=== PATIENT | female | born 1990 | race Caucasian/White ===

== ENCOUNTER 2017-08-28 14:22 | Emergency (ER) | payer SELFPAY ==
[2017-08-28] MEDS: METOCLOPRAMIDE INJ 10MG/2ML VIAL (J2765) IV (15:21)
[2017-08-28] MEDS: NS 1,000 ML IV ×2 (15:21→16:57)
[2017-08-28 15:34] LABS: ANION GAP 9 MEQ/L (8-16); BLOOD UREA NITROGEN 9 MG/DL (7-18); CALCIUM LEVEL 8.5 MG/DL (8.5-10.1); CARBON DIOXIDE LEVEL 21 MEQ/L (21-32); CHLORIDE LEVEL 111 MEQ/L (98-107); CONTROL LINE HCG INT CTR LINE PRESENT; CREATININE FOR GFR 0.76 MG/DL (0.55-1.30); GLOMERULAR FILTRATION RATE > 60.0 (>60); GLUCOSE, FASTING 83 MG/DL (70-100); HCG, SERUM QUALITATIVE NEGATIVE (NEGATIVE); POTASSIUM SERUM 4.1 MEQ/L (3.5-5.1); SODIUM LEVEL 141 MEQ/L (136-145)
[2017-08-28 17:21] LABS: ALBUMIN 4.2 GM/DL (3.2-5.2); ALBUMIN/GLOBULIN RATIO 1.27 (1.00-1.93); ALKALINE PHOSPHATASE 64 U/L (45-117); ALT/SGPT 13 U/L (12-78); AST/SGOT 16 U/L (7-37); BILIRUBIN,DIRECT 0.3 MG/DL (0.0-0.2); BILIRUBIN,TOTAL 1.1 MG/DL (0.2-1.0); LIPASE 142 U/L (73-393); TOTAL PROTEIN 7.5 GM/DL (6.4-8.2)
== END 2017-08-28 17:53 | disposition home or self-care (01) ==
LOC: M ED 14:22
DX: R11.2 Nausea with vomiting, unspecified (principal); R19.7 Diarrhea, unspecified; N80.9 Endometriosis, unspecified
CPT/HCPCS: J2765

== ENCOUNTER → 2018-12-17 | Outpatient (REF) | payer OTHER ==
[2018-12-17 19:23] LABS: BASO # 0.1 10^3/uL (0.0-0.2); BASO % 0.6 % (0.0-1.0); EOS # 0.4 10^3/uL (0.0-0.50); HEMATOCRIT 41.8 % (36.0-47.0); HEMOGLOBIN 13.9 g/dl (12.0-15.5); LYMPH % 34.3 % (24.0-44.0); MEAN CORPUSCULAR HEMOGLOBIN 29.8 pg (27.0-33.0); MEAN CORPUSCULAR HGB CONC 33.3 g/dl (32.0-36.5); MEAN CORPUSCULAR VOLUME 89.5 fl (80.0-96.0); MONO # 0.8 10^3/uL (0.0-0.8); MONO % 9.4 % (0.0-5.0); NEUTROPHILS # 4.5 10^3/uL (1.8-7.7); NEUTROPHILS % 50.6 % (36.0-66.0); PLATELET COUNT, AUTOMATED 242 10^3/uL (150-450); RED BLOOD COUNT 4.67 10^6/uL (4.00-5.40); WHITE BLOOD COUNT 8.8 10^3/uL (4.0-10.0)
[2018-12-17 19:40] LABS: ALT/SGPT 18 U/L (12-78); BILIRUBIN,TOTAL 0.6 MG/DL (0.2-1.0); BLOOD UREA NITROGEN 12 MG/DL (7-18); CALCIUM LEVEL 8.8 MG/DL (8.5-10.1); CARBON DIOXIDE LEVEL 29 MEQ/L (21-32); CHLORIDE LEVEL 107 MEQ/L (98-107); FREE T4 0.98 NG/DL (0.76-1.46); GLOMERULAR FILTRATION RATE > 60.0 (>60); GLUCOSE, FASTING 74 MG/DL (70-100); HCG, SERUM QUANTITATIVE 479 MIU/ML; SODIUM LEVEL 140 MEQ/L (136-145); TOTAL PROTEIN 7.4 GM/DL (6.4-8.2)
== END ==
LOC: M SFHCADAM 14:57
PROVIDERS: ATTEND Physician Assistant Medical
DX: Z32.01 Encounter for pregnancy test, result positive (principal); F34.1 Dysthymic disorder; N93.9 Abnormal uterine and vaginal bleeding, unspecified

== ENCOUNTER → 2018-12-17 | Outpatient (CLI) | payer OTHER ==
--- NOTE | 2018-12-18 06:39 | REP ---
Clinical: Positive test with vaginal bleeding. Technique: Transabdominal and transvaginal first trimester obstetrical channel with color Doppler evaluation. Findings: Homogeneous anteverted uterus measures 6.8 x 4.3 x 6.5 cm. Endometrial complex measures 5.5 mm thickness without evidence for decidual reaction. No gestational sac or is appreciated. The bilateral ovaries are normal in appearance and vascularity without torsion. Right ovary measures 1.9 x 1.7 x 1.1 cm (RI 0.65). Left ovary measures 2.1 x 1.5 x 1.2 cm (RI 0.62). No pelvic fluid or adnexal mass lesion. Impression: No decidual reaction or intrauterine identified. Correlation with serial HCG levels recommended. Electronically Signed by Naseem Osorio MD 12/18/2018 06:30 A
== END ==
LOC: M RAD 17:36
PROVIDERS: ATTEND Physician Assistant Medical
DX: N93.9 Abnormal uterine and vaginal bleeding, unspecified (principal); Z32.01 Encounter for pregnancy test, result positive

== ENCOUNTER → 2019-02-03 | Outpatient (REF) | payer OTHER | LOC: M SFHCADAM 08:47 | PROVIDERS: ATTEND Physician Assistant Medical | DX: Z87.59 Personal history of other complications of pregnancy, childbirth and the puerperium (principal) ==

== ENCOUNTER → 2019-02-28 | Outpatient (REF) | payer OTHER ==
[2019-02-28 13:23] LABS: CHLAMYDIA DNA AMPLIFICATION NEGATIVE (NEGATIVE); GC DNA AMPLIFICATION NEGATIVE (NEGATIVE)
== END ==
LOC: M SFHCWAGY 08:41
PROVIDERS: ATTEND Family Medicine
DX: Z12.4 Encounter for screening for malignant neoplasm of cervix (principal); Z11.3 Encounter for screening for infections with a predominantly sexual mode of transmission

== ENCOUNTER → 2019-07-12 | Outpatient (REF) | payer MEDICAID ==
[2019-07-12 16:08] LABS: INFLUENZA A AMPLIFICATION NEGATIVE (NEGATIVE); INFLUENZA B AMPLIFICATION NEGATIVE (NEGATIVE)
== END ==
LOC: M LAB REF 11:09
PROVIDERS: ATTEND Physician Assistant
DX: J11.1 Influenza due to unidentified influenza virus with other respiratory manifestations (principal)

== ENCOUNTER → 2020-03-25 | Outpatient (REF) | payer OTHER, MEDICAID ==
[2020-03-26 08:07] LABS: CHLAMYDIA DNA AMPLIFICATION NEGATIVE (NEGATIVE); GC DNA AMPLIFICATION NEGATIVE (NEGATIVE)
== END ==
LOC: M SFHCWAGY 17:00
PROVIDERS: ATTEND Advanced Practice Midwife
DX: Z11.3 Encounter for screening for infections with a predominantly sexual mode of transmission (principal)

== ENCOUNTER → 2020-03-31 | Outpatient (CLI) | payer OTHER, MEDICAID | LOC: M PLALAB 12:24 | PROVIDERS: ATTEND Advanced Practice Midwife | DX: Z13.79 Encounter for other screening for genetic and chromosomal anomalies (principal); Z80.3 Family history of malignant neoplasm of breast ==

== ENCOUNTER → 2020-04-27 | Outpatient (CLI) | payer OTHER ==
--- NOTE | 2020-04-27 10:31 | REP ---
INDICATION: N80.9 ENDOMETRIOSIS. COMPARISON: 09/18/2014. TECHNIQUE: Transabdominal and transvaginal scanning performed. FINDINGS: Uterine dimensions are 7.3 x 4.0 x 5.4 cm. Endometrial echo is 10 mm in AP dimension and centrally placed. There are a few 2 mm cystic structures scattered throughout the endometrium in the region of the body and lower uterine segment. The bladder measures 3.2 x 2.1 x 3.2 cm. The right ovary has dimensions of 2.0 x 2.9 x 2.3 cm. It's Doppler flow is normal with a resistive index of 0.64. The left ovary dimensions are 4.0 x 1.5 x 2.9 cm. It's Doppler flow was normal with resistive index of 0.45. A complex cystic structure left ovary most likely represents a hemorrhagic dominant follicle 1.8 x 1.5 x 0.7 cm. There is mild free fluid posteriorly. Multiple tiny cystic structures are visualized throughout the myometrium, subcentimeter in diameter. The largest is in the posterior fundus 8 x 7 x 6 mm. The findings are compatible with adenomyosis. IMPRESSION: Endometrial thickness 10 mm with a few scattered 2 mm cystic structures within the endometrial echo complex. Multiple subcentimeter cysts are seen throughout the myometrium compatible with adenomyosis. Complex cystic structure left ovary most likely represents a hemorrhagic dominant follicle, maximum diameter is 1.8 cm. Mild free fluid. <Electronically signed by Jorge Luis Brock > 04/27/20 [id number]
== END ==
LOC: M WHC 08:33
PROVIDERS: ATTEND Advanced Practice Midwife
DX: N80.9 Endometriosis, unspecified (principal); N83.202 Unspecified ovarian cyst, left side

== ENCOUNTER 2020-06-05 21:59 | Emergency (ER) | payer OTHER ==
[~2020-06-05] VITALS: Ht 165.1 cm; Wt 74.2 kg
[2020-06-05] MEDS ORDERED: IBUPROFEN 800 MG TAB PO ONE (22:45)
[2020-06-05 23:00] VITALS: BP 120/68
--- NOTE | 2020-06-06 08:26 | ECGEPIP ---
[facility] - ED Test Date: 2020-06-05 Pat Name: MALKA SPARKS Department: Room: - Gender: Female Mounter: ARVIN : 1990 Requested By: AUGUSTA BLACKWELL Order Number: [id number] Reading MD: Pascual Chin Measurements Intervals [place] Rate: 81 P: 58 CT: 139 QRS: 60 QRSD: 90 T: 16 QT: 387 QTc: 449 Interpretive Statements SINUS RHYTHM WITH SINUS ARRHYTHMIA NSTTW ABNORMALITY(S) NO PRIORS FOR COMPARISON Electronically Signed on 06-06-2020 8:26:13 EST by Pascual Chin
[2020-06-23] MEDS ORDERED: ETON1VAG3 VG (10:53)
== END 2020-06-05 23:21 | disposition home or self-care (01) ==
LOC: M ED 21:59
DX: R07.89 Other chest pain (principal); Z91.040 Latex allergy status

== ENCOUNTER → 2020-06-10 | Outpatient (REF) | payer OTHER | LOC: M SFHCADAM 07:56 | PROVIDERS: ATTEND Physician Assistant Medical | DX: F32.1 Major depressive disorder, single episode, moderate (principal) ==

== ENCOUNTER → 2020-07-02 | Outpatient (CLI) | payer OTHER ==
[~2020-07-02] MED LIST: ETON1VAG3 VG
== END ==
LOC: M LABSMTC 10:14
PROVIDERS: ATTEND Anesthesiology
DX: Z01.812 Encounter for preprocedural laboratory examination (principal); Z20.822 Contact with and (suspected) exposure to COVID-19

== ENCOUNTER 2020-07-07 06:13 | Day surgery (SDC) | payer OTHER ==
[~2020-07-07] VITALS: Ht 198.1 cm; Wt 72.6 kg
[~2020-07-07 06:13] MED LIST changes: +LIDOCAINE 1% MDV 20ML VIAL SQ PRN; +LR 1,000 ML IV ONE
[2020-07-07] MEDS ORDERED: MIDAZOLAM INJ 2MG/2ML VIAL (J2250 PER 1MG) ONE (06:14)
[2020-07-07 07:01] LABS: HEMATOCRIT 39.4 % (36.0-47.0); HEMOGLOBIN 13.1 g/dl (12.0-15.5); MEAN CORPUSCULAR HEMOGLOBIN 28.1 pg (27.0-33.0); MEAN CORPUSCULAR HGB CONC 33.2 g/dl (32.0-36.5); MEAN CORPUSCULAR VOLUME 84.5 fl (80.0-96.0); PLATELET COUNT, AUTOMATED 284 10^3/uL (150-450); RED BLOOD COUNT 4.66 10^6/uL (4.00-5.40); WHITE BLOOD COUNT 8.9 10^3/uL (4.0-10.0)
[2020-07-07] MEDS ORDERED: BUPIVACAINE HCL 0.25% 10ML VIAL As Ordered ONE (07:12)
[2020-07-07] MEDS ORDERED: METHYLENE BLUE 0.5% (5MG/ML) 10 ML AMP (PROVAYBLUE) As Ordered ONE (07:12)
[2020-07-07] MEDS ORDERED: ROCURONIUM BROMIDE 50 MG/5 ML VIAL As Ordered ONE (07:13)
[2020-07-07] MEDS ORDERED: LIDOCAINE 2% 100MG/5ML SDV (FOR ANES.) As Ordered ONE (07:13)
[2020-07-07] MEDS ORDERED: propofoL 200 MG/20 ML VIAL As Ordered ONE (07:13)
[2020-07-07] MEDS ORDERED: fentaNYL 250 MCG/5 ML INJECTION (J3010) As Ordered ONE (07:14)
[2020-07-07 07:33] LABS: HCG, SERUM QUALITATIVE NEGATIVE (NEGATIVE)
[2020-07-07] MEDS ORDERED: SCOPOLAMINE 1MG TRANSDERMAL PATCH As Ordered ONE (07:33)
[2020-07-07] MEDS ORDERED: OXYC1TAB23 PO (07:41)
[2020-07-07] MEDS ORDERED: SCOPOLAMINE 1MG TRANSDERMAL PATCH TOP ONE (07:45)
[2020-07-07] MEDS ORDERED: KETOROLAC 60MG 2ML VIAL As Ordered ONE (08:06)
[2020-07-07] MEDS ORDERED: METOCLOPRAMIDE INJ 10MG/2ML VIAL (J2765 PER 1) As Ordered ONE (08:06)
[2020-07-07] MEDS ORDERED: ONDANSETRON 4MG/2ML VIAL As Ordered ONE (08:06)
[2020-07-07] MEDS ORDERED: ACETAMINOPHEN 1000MG 100ML IV BTL (OFIRMEV) (J0131 PER 10MG) As Ordered ONE (08:06)
[2020-07-07] MEDS ORDERED: dexameTHASONE 4 MG/ML 1ML VIAL (J1100 PER 1MG) As Ordered ONE (08:06)
[2020-07-07] MEDS ORDERED: SUGAMMADEX SODIUM 500 MG/5 ML VIAL (BRIDION) As Ordered ONE (08:25)
[2020-07-07] MEDS ORDERED: fentaNYL 100 MCG/2 ML INJECTION (J3010) IV PRN (10:30)
[2020-07-07] MEDS ORDERED: ONDANSETRON 4MG/2ML VIAL IV PRN (10:30)
[2020-07-07] MEDS ORDERED: KETOROLAC 30 MG/ML 1ML VIAL IV PRN (10:30)
[2020-07-07] MEDS ORDERED: LR 1,000 ML IV SCH (10:30)
[2020-07-07] MEDS ORDERED: oxyCODONE 5MG TAB PO PRN (10:30)
[2020-07-07 11:30] VITALS: BP 130/65
--- NOTE | 2020-08-12 14:21 | RO ---
OPERATIVE NOTE DATE OF OPERATION: 07/07/2020 PREOPERATIVE DIAGNOSIS: Dysmenorrhea, dyspareunia, dyschezia and pelvic pain and endometriosis. POSTOPERATIVE DIAGNOSIS: Dysmenorrhea, dyspareunia, dyschezia and pelvic pain and endometriosis. Endometriosis is now stage 3. PROCEDURE PERFORMED: Operative laparoscopy with biopsy of peritoneum and lysis of adhesions, chromopertubation. SURGEON: Antonia Bolanos M.D. RN OR LPN: Aldo Mc DO ANESTHESIA: GETA INDICATION FOR OPERATION: Margaret is a 30-year-old, G5, P 0-0-5-0, who presented to the office with complaints of worsening dysmenorrhea, dyspareunia, dychezia and pelvic pain. She had a prior diagnosis of endometriosis in 2005 when she had laparoscopy and was noted have stage 1. However, she has symptoms that are effecting the quality of her life. Most notably is the dyschezia. She had such painful defecation during the week of her period that she chooses to only eat very soft foods and mostly smoothies because a regular diet causes her significant pain with defecation. I counseled her on options of oral contraceptive pill versus Lupron versus a repeat laparoscopy to see if she had development of further disease and she opted for surgical procedure. We also discussed chromopertubation to see if her fallopian tubes were patent given that she desires to have children in the future. MATERIAL FORWARDED TO THE LAB FOR EXAMINATION: Left uterosacral peritoneal biopsy which resulted fragments of fibromuscular tissue with endometriosis. DESCRIPTION OF FINDINGS: There was stage 3 endometriosis noted. She had deep endometriosis lesions in the posterior cul-de-sac with scarring. This was especially prominent over the uterosacral ligament peritoneum was biopsied. There were superficial endometriosis lesions on the bladder and uterus and the right fallopian tube as well. There was scarring on the anterior abdominal wall peritoneum and there was adhesion of the bowel on the left side of the abdomen which caused it to be stuck up on the abdominal wall. These adhesions were lysed and notably there was also a superficial endometriosis lesion overlying the left iliac vessels. We ablated all active appearing endometriosis lesions with the exception of the one overlying the iliac vessels. The left fallopian tube and ovaries were normal in appearance. Chromopertubation showed patent fallopian tubes. The liver edge and appendix were normal in appearance. INFECTION CLASSIFICATION: 2. ESTIMATED BLOOD LOSS: 10 mL. IV FLUIDS: 1300ml URINE OUTPUT: 250ml DESCRIPTION OF PROCEDURE: After obtaining informed consent, Margaret was taken to the operating room. General endotracheal anesthesia was established. She was placed in low lithotomy position. Bilateral sequential compression devices were placed as well as a Bauman catheter. She was prepped and draped in sterile fashion. A bivalve speculum was placed in the vagina and visualization of the cervix was obtained. The anterior lip of the cervix was grasped with a single-tooth tenaculum. A MARISELA uterine manipulator was placed through the cervix into the uterus which was necessary for the chromotubation and the tenaculum was removed with hemostasis observed. The bivalve speculum was removed. The patient was taken out of Trendelenburg position and at that point, a 5 mm incision was made in the infraumbilical fold beneath the subcutaneous tissue. A Jaqueline clamp was used to spread the subcutaneous tissue. A 5 mm trocar was placed under direct visualization. The laparoscope was advanced through the port and intra-abdominal placement was confirmed. There was no injury beneath the entry point when observed. Continuous flow carbon dioxide began to establish pneumoperitoneum at 15 mmHg pressure. We then made two more incisions, one in the right lower quadrant and one in the left lower quadrant. 5mm trocars were placed under direct visualization. We did a very thorough inspection of the abdomen and I took multiple photographs which the patient will be provided with for her medical record. We first performed a peritoneal biopsy over the left uterosacral ligament and that specimen was sent to pathology. We then used monopolar cautery to ablate the lesions of endometriosis noted in the posterior cul-de-sac, the superficial lesions on the bladder and uterus and then we performed a lysis of adhesions of the bowel that was stuck up to the left side of the abdomen, allowing it to be much more mobile, taking great care to avoid injuring the bowel. We then performed chromopertubation. Methylene blue dye was placed in normal saline and pushed through the syringe attached to the uterine manipulator and the dye was seen to freely flow through cervix, uterus, fallopian tubes and was noted in the abdomen from both of the fallopian tubes which demonstrated patency of both of the fallopian tubes. We performed suction and irrigation at that point and then the procedure was terminated. We removed the ports under direct visualization, they were hemostatic and finally the abdominal port was removed after letting out the pneumoperitoneum. The port sites were closed using 4-0 Monocryl and then Dermabond was placed overlying the incisions. All instruments were removed from the vagina. Hemostasis was noted from the incision and the vagina. The patient was returned to supine position and she was awakened from anesthesia and taken to the recovery room in good condition. MORE
== END 2020-07-07 11:47 | disposition home or self-care (01) ==
LOC: M SDC 06:13
PROVIDERS: ATTEND Obstetrics & Gynecology
DX: N94.6 Dysmenorrhea, unspecified (principal); N94.19 Other specified dyspareunia; N80.3 Endometriosis of pelvic peritoneum; F41.9 Anxiety disorder, unspecified; K21.9 Gastro-esophageal reflux disease without esophagitis; K59.00 Constipation, unspecified; K66.0 Peritoneal adhesions (postprocedural) (postinfection); M54.5 Low back pain; R10.2 Pelvic and perineal pain; Z79.3 Long term (current) use of hormonal contraceptives; Z87.891 Personal history of nicotine dependence; Z91.040 Latex allergy status; Z91.048 Other nonmedicinal substance allergy status
CPT/HCPCS: 36415; 58350; 58660; 84703; 85027; 86850; 86900; 86901; 88305; J0131; J1100; J1885; J2250; J2405; J2765; J3010; Q9968

== ENCOUNTER → 2021-02-10 | Outpatient (REF) | payer OTHER ==
[~2021-02-10] MED LIST changes: -LIDOCAINE 1% MDV 20ML VIAL SQ PRN; -LR 1,000 ML IV ONE; +OXYC1TAB23 PO
[2021-02-10 13:38] LABS: ALBUMIN 3.9 GM/DL (3.2-5.2); ALT/SGPT 17 U/L (12-78); BILIRUBIN,TOTAL 0.5 MG/DL (0.2-1.0); BLOOD UREA NITROGEN 12 MG/DL (7-18); CALCIUM LEVEL 9.1 MG/DL (8.5-10.1); CARBON DIOXIDE LEVEL 26 MEQ/L (21-32); CHLORIDE LEVEL 111 MEQ/L (98-107); CREATININE FOR GFR 0.76 MG/DL (0.55-1.30); GLOMERULAR FILTRATION RATE > 60.0 (>60); GLUCOSE, FASTING 91 MG/DL (70-100); POTASSIUM SERUM 4.4 MEQ/L (3.5-5.1); SODIUM LEVEL 142 MEQ/L (136-145); TOTAL PROTEIN 7.3 GM/DL (6.4-8.2)
== END ==
LOC: M SFHCADAM 09:26
PROVIDERS: ATTEND Family Medicine
DX: R56.9 Unspecified convulsions (principal)

== ENCOUNTER → 2021-04-15 | Outpatient (REF) | payer OTHER ==
[2021-04-15 18:51] LABS: GC DNA AMPLIFICATION NEGATIVE (NEGATIVE)
== END ==
LOC: M SFHCWAGY 17:01
PROVIDERS: ATTEND Advanced Practice Midwife
DX: Z12.4 Encounter for screening for malignant neoplasm of cervix (principal); Z77.9 Other contact with and (suspected) exposures hazardous to health; Z11.3 Encounter for screening for infections with a predominantly sexual mode of transmission

== ENCOUNTER → 2021-05-31 | Outpatient (REF) | payer OTHER | LOC: M LAB REF 16:31 | PROVIDERS: ATTEND Physician Assistant Medical | DX: R50.9 Fever, unspecified (principal) ==

== ENCOUNTER → 2022-01-05 | Outpatient (REF) | payer OTHER | LOC: M PLALAB 08:49 | PROVIDERS: ATTEND Advanced Practice Midwife | DX: Z11.3 Encounter for screening for infections with a predominantly sexual mode of transmission (principal); Z53.9 Procedure and treatment not carried out, unspecified reason ==

== ENCOUNTER → 2022-03-13 | Outpatient (CLI) | payer OTHER | LOC: M CARPUL 13:41 | PROVIDERS: ATTEND Physician Assistant Medical | DX: R06.09 Other forms of dyspnea (principal) ==

== ENCOUNTER → 2022-03-30 | Outpatient (CLI) | payer OTHER | LOC: M EKG 11:30 | PROVIDERS: ATTEND Physician Assistant Medical | DX: R00.0 Tachycardia, unspecified (principal) ==

== ENCOUNTER → 2022-04-01 | Outpatient (CLI) | payer OTHER ==
[2022-04-01 15:23] LABS: BASO % 0.4 % (0.0-1.0); EOS # 0.3 10^3/uL (0.0-0.5); EOS % 3.7 % (0.0-3.0); HEMATOCRIT 38.4 % (36.0-47.0); HEMOGLOBIN 12.4 g/dl (12.0-15.5); LYMPH # 2.8 10^3/uL (1.5-5.0); LYMPH % 38.2 % (24.0-44.0); MEAN CORPUSCULAR HEMOGLOBIN 26.5 pg (27.0-33.0); MEAN CORPUSCULAR HGB CONC 32.3 g/dl (32.0-36.5); MEAN CORPUSCULAR VOLUME 82.1 fl (80.0-96.0); MONO # 0.4 10^3/uL (0.0-0.8); MONO % 5.8 % (2.0-8.0); NEUTROPHILS # 3.8 10^3/uL (1.5-8.5); NEUTROPHILS % 51.6 % (36.0-66.0); PLATELET COUNT, AUTOMATED 255 10^3/uL (150-450); RED BLOOD COUNT 4.68 10^6/uL (4.00-5.40); WHITE BLOOD COUNT 7.3 10^3/uL (4.0-10.0)
[2022-04-01 16:10] LABS: ALBUMIN 3.7 G/DL (3.2-5.2); ALT/SGPT < 9 U/L (7.0-40); BILIRUBIN,TOTAL 0.4 MG/DL (0.3-1.2); BLOOD UREA NITROGEN 13 MG/DL (9-23); CALCIUM LEVEL 8.3 MG/DL (8.5-10.1); CARBON DIOXIDE LEVEL 27 MMOL/L (20-31); CHLORIDE LEVEL 106 MMOL/L (98-107); CREATININE FOR GFR 0.73 MG/DL (0.55-1.30); FREE T4 0.98 NG/DL (0.89-1.76); GLOMERULAR FILTRATION RATE > 60.0 (>60); GLUCOSE, FASTING 98 MG/DL (60-100); POTASSIUM SERUM 3.9 MMOL/L (3.5-5.1); SODIUM LEVEL 140 MMOL/L (136-145); THYROID STIMULATING HORMONE 1.301 uIU/ML (0.55-4.78); TOTAL PROTEIN 6.7 G/DL (5.7-8.2)
== END ==
LOC: M RAD 14:20
PROVIDERS: ATTEND Physician Assistant Medical
DX: R06.09 Other forms of dyspnea (principal); R00.0 Tachycardia, unspecified; F41.1 Generalized anxiety disorder

== ENCOUNTER → 2022-05-26 | Outpatient (REF) | payer OTHER ==
[2022-05-29 09:58] LABS: GC DNA AMPLIFICATION NEGATIVE (NEGATIVE)
== END ==
LOC: M PLALAB 14:53
PROVIDERS: ATTEND Advanced Practice Midwife
DX: Z12.4 Encounter for screening for malignant neoplasm of cervix (principal); Z11.3 Encounter for screening for infections with a predominantly sexual mode of transmission

== ENCOUNTER → 2022-08-18 | Outpatient (REF) | payer OTHER | LOC: M PLALAB 12:32 | PROVIDERS: ATTEND Advanced Practice Midwife | DX: R87.810 Cervical high risk human papillomavirus (HPV) DNA test positive (principal); R87.612 Low grade squamous intraepithelial lesion on cytologic smear of cervix (LGSIL) ==

== ENCOUNTER 2023-04-27 19:09 | Emergency (ER) | payer MEDICAID, OTHER ==
[~2023-04-27] VITALS: Ht 166.4 cm; Wt 70.5 kg
[2023-04-27] MEDS ORDERED: BOOSTRIX VACCINE (TETANUS/DIPHTH/ACEL. PERTUSSIS) 0.5ML SYR IM ONE (19:40)
[2023-04-27] MEDS ORDERED: DERMABOND TOPICAL SKIN ADHESIVE TOP ONE (20:30)
[2023-04-27 20:57] VITALS: BP 145/71; TEMP 97.8; O2SAT 97
== END 2023-04-27 21:01 | disposition home or self-care (01) ==
LOC: M ED 19:09
DX: S61.210A Laceration without foreign body of right index finger without damage to nail, initial encounter (principal); W26.8XXA Contact with other sharp object(s), not elsewhere classified, initial encounter; F17.200 Nicotine dependence, unspecified, uncomplicated; F10.10 Alcohol abuse, uncomplicated; F12.10 Cannabis abuse, uncomplicated; Y92.009 Unspecified place in unspecified non-institutional (private) residence as the place of occurrence of the external cause; Y93.89 Activity, other specified; Y99.9 Unspecified external cause status; Z23 Encounter for immunization

== ENCOUNTER → 2023-09-12 | Outpatient (REF) | payer OTHER | LOC: M SFHCWAGY 09:49 | PROVIDERS: ATTEND Nurse Practitioner Family | DX: R30.0 Dysuria (principal) ==

== ENCOUNTER → 2023-10-26 | Outpatient (REF) | payer OTHER ==
[2023-10-30 16:12] LABS: HPV APTIMA Detected (Not Detected)
== END ==
LOC: M PLALAB 16:21
PROVIDERS: ATTEND Advanced Practice Midwife
DX: Z12.4 Encounter for screening for malignant neoplasm of cervix (principal); R87.5 Abnormal microbiological findings in specimens from female genital organs; R87.612 Low grade squamous intraepithelial lesion on cytologic smear of cervix (LGSIL); R87.810 Cervical high risk human papillomavirus (HPV) DNA test positive

== ENCOUNTER → 2023-10-29 | Outpatient (CLI) | payer OTHER | LOC: M PLALAB 14:42 | PROVIDERS: ATTEND Obstetrics & Gynecology | DX: O36.80X0 Pregnancy with inconclusive fetal viability, not applicable or unspecified (principal); Z3A.00 Weeks of gestation of pregnancy not specified ==

== ENCOUNTER → 2023-10-31 | Outpatient (CLI) | payer OTHER | LOC: M PLALAB 13:49 | PROVIDERS: ATTEND Advanced Practice Midwife | DX: O36.80X0 Pregnancy with inconclusive fetal viability, not applicable or unspecified (principal); Z3A.00 Weeks of gestation of pregnancy not specified ==

== ENCOUNTER → 2023-11-05 | Outpatient (CLI) | payer OTHER | LOC: M RAD 07:12 | PROVIDERS: ATTEND Advanced Practice Midwife | DX: O36.80X0 Pregnancy with inconclusive fetal viability, not applicable or unspecified (principal); Z3A.09 9 weeks gestation of pregnancy ==

== ENCOUNTER → 2023-11-28 | Outpatient (CLI) | payer OTHER ==
[2023-11-28 15:45] LABS: HEMATOCRIT 37.1 % (36.0-47.0); MEAN CORPUSCULAR HEMOGLOBIN 27.3 pg (27.0-33.0); MEAN CORPUSCULAR HGB CONC 32.3 g/dl (32.0-36.5); MEAN CORPUSCULAR VOLUME 84.5 fl (80.0-96.0); PLATELET COUNT, AUTOMATED 252 10^3/uL (150-450); RED BLOOD COUNT 4.39 10^6/uL (4.00-5.40); WHITE BLOOD COUNT 8.9 10^3/uL (4.0-10.0)
[2023-11-28 16:47] LABS: HIV 1&2 SCREEN NEGATIVE (NEGATIVE)
[2023-11-28 16:58] LABS: HEPATITIS C VIRUS ABY INDEX < 0.02 INDEX (<0.8)
[2023-11-28 17:14] LABS: GC DNA AMPLIFICATION NEGATIVE (NEGATIVE)
== END ==
LOC: M PLALAB 12:22
PROVIDERS: ATTEND Advanced Practice Midwife
DX: Z34.81 Encounter for supervision of other normal pregnancy, first trimester (principal); Z3A.12 12 weeks gestation of pregnancy

== ENCOUNTER → 2023-12-28 | Outpatient (REF) | payer OTHER | LOC: M PLALAB 08:39 | PROVIDERS: ATTEND Advanced Practice Midwife | DX: O26.852 Spotting complicating pregnancy, second trimester (principal) ==

== ENCOUNTER → 2023-12-28 | Outpatient (REF) | payer OTHER | LOC: M SFHCWAGY 13:05 | PROVIDERS: ATTEND Advanced Practice Midwife | DX: O26.852 Spotting complicating pregnancy, second trimester (principal) ==

== ENCOUNTER → 2024-01-31 | Outpatient (CLI) | payer OTHER | LOC: M WHC 09:09 | PROVIDERS: ATTEND Advanced Practice Midwife | DX: Z36.89 Encounter for other specified antenatal screening (principal); Z3A.21 21 weeks gestation of pregnancy ==

== ENCOUNTER → 2024-02-25 | Outpatient (REF) | payer OTHER | LOC: M SFHCWAGY 12:21 | PROVIDERS: ATTEND Specialist | DX: Z34.92 Encounter for supervision of normal pregnancy, unspecified, second trimester (principal) ==

== ENCOUNTER → 2024-03-26 | Outpatient (CLI) | payer OTHER ==
[2024-03-26 15:19] LABS: HEMATOCRIT 37.3 % (36.0-47.0); HEMOGLOBIN 12.4 g/dl (12.0-15.5); MEAN CORPUSCULAR HEMOGLOBIN 29.4 pg (27.0-33.0); MEAN CORPUSCULAR HGB CONC 33.2 g/dl (32.0-36.5); MEAN CORPUSCULAR VOLUME 88.4 fl (80.0-96.0); PLATELET COUNT, AUTOMATED 217 10^3/uL (150-450); RED BLOOD COUNT 4.22 10^6/uL (4.00-5.40); WHITE BLOOD COUNT 11.2 10^3/uL (4.0-10.0)
[2024-03-26 15:21] LABS: GLUCOSE CHALLENGE TEST 1 HOUR 90 MG/DL (LESS THAN 140)
[2024-03-26 15:57] LABS: HIV 1&2 SCREEN NEGATIVE (NEGATIVE)
[2024-03-26 16:05] LABS: HEPATITIS C VIRUS ABY INDEX < 0.02 INDEX (<0.8)
[2024-03-26 16:53] LABS: GC DNA AMPLIFICATION NEGATIVE (NEGATIVE)
== END ==
LOC: M PLALAB 09:45
PROVIDERS: ATTEND Obstetrics & Gynecology
DX: Z34.82 Encounter for supervision of other normal pregnancy, second trimester (principal); Z3A.21 21 weeks gestation of pregnancy

== ENCOUNTER → 2024-03-27 | Outpatient (CLI) | payer OTHER | LOC: M WHC 06:49 | PROVIDERS: ATTEND Specialist | DX: O32.1XX0 Maternal care for breech presentation, not applicable or unspecified (principal); Z3A.29 29 weeks gestation of pregnancy ==

== ENCOUNTER → 2024-05-09 | Outpatient (REF) | payer OTHER ==
[~2024-05-09] MED LIST changes: +METO10TA3 PO; +PRENTAB7 PO; +TUMS500C PO
== END ==
LOC: M SFHCWAGY 09:34
PROVIDERS: ATTEND Specialist
DX: O26.23 Pregnancy care for patient with recurrent pregnancy loss, third trimester (principal); O34.03 Maternal care for unspecified congenital malformation of uterus, third trimester; Q51.3 Bicornate uterus; Z3A.36 36 weeks gestation of pregnancy; Z91.040 Latex allergy status; Z88.5 Allergy status to narcotic agent; Z86.19 Personal history of other infectious and parasitic diseases; Z80.1 Family history of malignant neoplasm of trachea, bronchus and lung; Z80.3 Family history of malignant neoplasm of breast

== ENCOUNTER 2024-05-22 18:26 | Outpatient (CLI) | payer OTHER ==
[~2024-05-22] VITALS: Ht 167.6 cm; Wt 79.4 kg
[~2024-05-22 18:26] MED LIST changes: -TUMS500C PO
[2024-05-22 18:34] VITALS: BP 120/70; O2SAT 97
[2024-05-22] MEDS ORDERED: TUMS500C PO (18:42)
[2024-05-22] MEDS ORDERED: HOME MED LIST COMPLETE! XX SCH (18:45)
[2024-05-22 19:11] VITALS: BP 121/71
== END 2024-05-22 19:00 | disposition home or self-care (01) ==
LOC: M LDO 18:26
PROVIDERS: ATTEND Obstetrics & Gynecology
DX: O36.8130 Decreased fetal movements, third trimester, not applicable or unspecified (principal); O34.03 Maternal care for unspecified congenital malformation of uterus, third trimester; Q51.3 Bicornate uterus; Z3A.37 37 weeks gestation of pregnancy
CPT/HCPCS: 59025; G0463

== ENCOUNTER 2024-07-25 00:34 | Emergency (ER) | payer MEDICAID, OTHER ==
[~2024-07-25] VITALS: Ht 165.1 cm; Wt 72.7 kg
[~2024-07-25 00:34] MED LIST changes: +TUMS500C PO
[2024-07-25 00:45] VITALS: BP 146/79; TEMP 98.8; O2SAT 96
[2024-07-25 01:16] LABS: BASO # 0.1 10^3/uL (0.0-0.2); BASO % 0.5 % (0.0-1.0); EOS # 0.4 10^3/uL (0.0-0.5); EOS % 4.7 % (0.0-3.0); HEMOGLOBIN 13.5 g/dl (12.0-15.5); LYMPH # 3.8 10^3/uL (1.5-5.0); LYMPH % 41.9 % (24.0-44.0); MEAN CORPUSCULAR HEMOGLOBIN 29.6 pg (27.0-33.0); MEAN CORPUSCULAR HGB CONC 34.6 g/dl (32.0-36.5); MEAN CORPUSCULAR VOLUME 85.5 fl (80.0-96.0); MONO # 0.7 10^3/uL (0.0-0.8); MONO % 7.3 % (2.0-8.0); NEUTROPHILS # 4.1 10^3/uL (1.5-8.5); NEUTROPHILS % 45.4 % (36.0-66.0); PLATELET COUNT, AUTOMATED 258 10^3/uL (150-450); RED BLOOD COUNT 4.56 10^6/uL (4.00-5.40); WHITE BLOOD COUNT 9.1 10^3/uL (4.0-10.0)
[2024-07-25 01:45] LABS: BLOOD UREA NITROGEN 20 MG/DL (9-23); CALCIUM LEVEL 8.3 MG/DL (8.5-10.1); CARBON DIOXIDE LEVEL 25 MMOL/L (20-31); CHLORIDE LEVEL 106 MMOL/L (98-107); CK-MB VALUE MASS < 1.0 NG/ML (<3.6); CREATININE FOR GFR 0.76 MG/DL (0.55-1.30); GLOMERULAR FILTRATION RATE > 60.0 (>60); GLUCOSE, FASTING 110 MG/DL (60-100); POTASSIUM SERUM 3.5 MMOL/L (3.5-5.1); SODIUM LEVEL 142 MMOL/L (136-145)
[2024-07-25 01:46] LABS: CPK CREATINE PHOSPHOKINASE 58 U/L (34-145); MB/CK RELATIVE INDEX 1.72 (< OR =4)
[2024-07-25 02:24] LABS: HCG, SERUM QUALITATIVE NEGATIVE (NEGATIVE)
== END 2024-07-25 04:52 | disposition left against medical advice (07) ==
LOC: M ED 00:34
DX: Z53.21 Procedure and treatment not carried out due to patient leaving prior to being seen by health care provider (principal)

== ENCOUNTER 2024-09-11 12:48 | Emergency (ER) | payer OTHER ==
[~2024-09-11] VITALS: Ht 167.6 cm; Wt 76.2 kg
[2024-09-11] MEDS ORDERED: ACET-683 PO (13:56)
[2024-09-11 14:30] VITALS: BP 111/64; TEMP 98; O2SAT 97
== END 2024-09-11 16:26 | disposition left against medical advice (07) ==
LOC: M ED 12:48
DX: Z53.21 Procedure and treatment not carried out due to patient leaving prior to being seen by health care provider (principal)

== ENCOUNTER → 2024-11-26 | Outpatient (REF) | payer OTHER ==
[~2024-11-26] MED LIST changes: +ACET-683 PO
[2024-11-28 14:53] LABS: HPV APTIMA Detected (Not Detected)
== END ==
LOC: M PLALAB 11:22
PROVIDERS: ATTEND Advanced Practice Midwife
DX: Z12.4 Encounter for screening for malignant neoplasm of cervix (principal)

== ENCOUNTER → 2025-04-29 | Outpatient (REF) | payer OTHER | LOC: M SFHCWAGY 13:29 | PROVIDERS: ATTEND Advanced Practice Midwife | DX: R87.810 Cervical high risk human papillomavirus (HPV) DNA test positive (principal) ==